=== PATIENT | female | born 1960 | race Caucasian/White ===

== ENCOUNTER 2017-11-19 06:37 | Day surgery (SDC) | payer OTHER ==
[2017-11-18 11:26] VITALS: BMI 36.3
[2017-11-19] MEDS ORDERED: Propofol 10 mg/ml Inj (20 ML) ONE (07:53)
--- NOTE | 2017-11-19 08:09 | CP.SDSHP ---
Same Day Surgery H & P - History Proposed Procedure: colonoscopy Pre-Op Diagnosis: screening for colon cancer - Previous Medical/Surgical History Cardiac: Other (hypercholesterolemia, ) Endocrine/Metabolic: Obesity Misc: Other (DJD) Pain: 2.Mild Pain - Allergies Allergies: Allergies No Known Allergies Allergy (Verified 11/19/17 06:59) - Physical Exam Vital Signs: Vital Signs 11/19/17 11/19/17 11/19/17 07:01 07:14 07:56 Temperature 97.2 F L 97.2 F L Pulse Rate 61 61 61 Respiratory 19 19 Rate Blood Pressure 118/75 118/75 O2 Sat by Pulse 97 97 Oximetry Mental Status: Alert & Oriented x3 Neuro: WNL Heart: WNL Lungs: WNL GI: WNL - Impression Impression: screening for colon cancer Pt. Evaluated Today:Candidate for Anesthesia & Procedure: Yes - Date & Time Date: 11/19/17 Time: 08:09 Short Stay Discharge - Short Stay Discharge Admitting Diagnosis/Reason for Visit: CONSTIPATION Disposition: HOME/ ROUTINE
[2017-11-19 08:50] VITALS: TEMP 96.2
[2017-11-19 09:33] VITALS: BP 104/58; PULSE 56; RESP 16; O2SAT 97
== END 2017-11-19 09:55 | disposition home or self-care (01) ==
LOC: C.ENDO 06:37
PROVIDERS: ATTEND Internal Medicine Gastroenterology
DX: Z12.11 Encounter for screening for malignant neoplasm of colon (principal); K59.00 Constipation, unspecified; E66.9 Obesity, unspecified; E78.00 Pure hypercholesterolemia, unspecified; K57.30 Diverticulosis of large intestine without perforation or abscess without bleeding; K64.1 Second degree hemorrhoids
CPT/HCPCS: 45378; J2001; J2704